=== PATIENT | male | born 1980 | race Caucasian/White ===

== ENCOUNTER 2021-07-03 13:18 | Emergency (ER) | payer SELFPAY ==
[2021-07-03 14:04] LABS: ANION GAP 15.6 mEq/L (7-13); CHLORIDE,CL 102 mmol/L (98-107); SODIUM,NA 140 mmol/L (136-145)
--- NOTE | 2021-07-03 15:02 | CR ---
PROCEDURE INFORMATION: Exam: XR Chest Exam date and time: 07/03/2021 1:31 PM Age: 40 years old Clinical indication: Pain; Chest pressure; Additional info: Chest pain TECHNIQUE: Imaging protocol: XR of the chest. Views: 1 view. Total images: 1 COMPARISON: No relevant prior studies available. FINDINGS: Lungs: Unremarkable. No consolidation. Pleural spaces: Unremarkable. No pleural effusion. No pneumothorax. Heart/Mediastinum: Unremarkable. No cardiomegaly. Bones/joints: Unremarkable. IMPRESSION: No acute findings.
[2021-07-03] MEDS ORDERED: Acetaminophen 325 MG Tab PO ONE (15:03)
[2021-07-03] MEDS ORDERED: Famotidine 20 MG/2 ML SDV IVPUSH ONE (15:03)
--- NOTE | 2021-07-03 16:35 | EDM.PDOC ---
ED HPI GENERAL MEDICAL PROBLEM - General Chief Complaint: Chest Pain Stated Complaint: [id number] FEELS LIKE HAVING HEART ATTACK Time Seen by Provider: 07/03/21 13:35 Source of Information: Reports: Patient History Limitations: Reports: No Limitations - History of Present Illness INITIAL COMMENTS - FREE TEXT/NARRATIVE: ED intermittent chest pain, Present since this am. No fever or chill, no cough. No nausea or vomiting, Describes mid to low anterior, sharp pressure type, feel better if lying on side. Chest Pain Score (Numeric/FACES): 5 - Related Data Allergies Allergy/AdvReac Type Severity Reaction Status Date / Time No Known Allergies Allergy Verified 07/03/21 13:40 Past Medical History - Past Health History Medical/Surgical History: Denies Medical/Surgical History Cardiovascular History: Reports: Hypertension Other Cardiovascular History: States BP has always been high. Not on medications - Infectious Disease History Infectious Disease History: Reports: None - Past Surgical History Cardiovascular Surgical History: Reports: None Social & Family History - Tobacco Use Tobacco Use Status *Q: Current Every Day Tobacco User Years of Tobacco use: 20 Packs/Tins Daily: 1 - Caffeine Use Caffeine Use: Reports: Coffee - Recreational Drug Use Recreational Drug Use: No ED ROS GENERAL - Review of Systems Review Of Systems: Comprehensive ROS is negative, except as noted in HPI. ED EXAM, GENERAL - Physical Exam Exam: See Below Exam Limited By: No Limitations General Appearance: Alert, No Apparent Distress, Anxious Eye Exam: Bilateral Eye: EOMI, Other (dark chickaloon below eyes) Ears: Normal External Exam, Hearing Grossly Normal Ear Exam: Bilateral Ear: TM normal Nose: Normal Inspection Throat/Mouth: Normal Inspection, Normal Voice, No Airway Compromise Head: Atraumatic, Normocephalic Respiratory/Chest: No Respiratory Distress, Lungs Clear, Normal Breath Sounds Cardiovascular: Normal Peripheral Pulses, No Murmur GI/Abdominal: Normal Bowel Sounds Extremities: Normal Inspection, Normal Range of Motion, Non-Tender Neurological: Alert, Oriented, Normal Cognition Psychiatric: Anxious, Flat Affect Skin Exam: Warm, Dry, Intact, Normal Color #1 Interpretation EKG Date: 07/03/21 Time: 14:38 Rhythm: NSR Rate (Beats/Min): 101 [place]: Normal P-Wave: Present QRS: Normal ST-T: Normal Comparison: NA - No Prior EKG Course - Vital Signs Last Recorded V/S: Last Vital Signs Temp 97.6 F 07/03/21 13:33 Pulse 97 07/03/21 13:33 Resp 20 07/03/21 13:33 BP 175/107 H 07/03/21 13:33 Pulse Ox 98 07/03/21 13:33 - Orders/Labs/Meds Labs: Laboratory Tests 07/03/21 07/03/21 07/03/21 Range/Units 13:32 13:32 15:30 WBC 4.7 L (5.0-10.0) 10^3/uL RBC 4.77 (4.6-6.2) 10^6/uL Hgb 16.5 (14.0-18.0) g/dL Hct 48.2 (40.0-54.0) % MCV 101.0 H (80-100) fL MCH 34.6 H (27.0-34.0) pg MCHC 34.2 (33.0-35.0) g/dL Plt Count 214 (150-450) 10^3/uL Neut % (Auto) 48.5 (42.2-75.2) % Lymph % (Auto) 35.8 (20.5-50.1) % Andrews % (Auto) 11.7 H (2-8) % Eos % (Auto) 2.3 (1.0-3.0) % Baso % (Auto) 1.7 H (0.0-1.0) % Sodium 140 (136-145) mmol/L Potassium 3.6 (3.5-5.1) mmol/L Chloride 102 (98-107) mmol/L Carbon Dioxide 26 (21-32) mmol/L Anion Gap 15.6 H (7-13) mEq/L BUN 7 (7-18) mg/dL Creatinine 1.27 (0.70-1.30) mg/dL Est Cr Clr Drug Dosing 84.86 mL/min Estimated GFR (MDRD) > 60 BUN/Creatinine Ratio 5.5 (No establ ref range) Glucose 143 H (70-99) mg/dL Calcium 9.0 (8.5-10.1) mg/dL Total Bilirubin 1.4 H (0.2-1.0) mg/dL AST 161 H (15-37) U/L ALT 109 H (16-63) U/L Alkaline Phosphatase 79 (46-116) U/L Troponin I High Sens < 4 < 4 (<=76) pg/mL Total Protein 8.3 H (6.4-8.2) g/dL Albumin 4.4 (3.4-5.0) g/dL Globulin 3.9 Albumin/Globulin Ratio 1.1 Amylase 37 (25-115) U/L Lipase 212 (73-393) U/L Ethyl Alcohol 181 (0) mg/dL Meds: Medications Discontinued Medications Generic Name Dose Route Start Last Admin Trade Name Montez PRN Reason Stop Dose Admin Acetaminophen 650 mg 07/03/21 15:03 07/03/21 15:10 Acetaminophen 325 Mg Tab PO 07/03/21 15:04 650 mg NOW ONE Administration Famotidine 20 mg 07/03/21 15:03 07/03/21 15:12 Famotidine 20 Mg/2 Ml Sdv IVPUSH 07/03/21 15:04 20 mg ONETIME ONE Administration Departure - Departure Time of Disposition: 17:35 Disposition: Home, Self-Care 01 Condition: Good Clinical Impression: Epigastric abdominal pain, Non-cardiac chest pain, Anxiety Alcohol intoxication Qualifiers: Complication of substance-induced condition: uncomplicated Qualified Code(s): F10.920 - Alcohol use, unspecified with intoxication, uncomplicated Instructions: Nonspecific Chest Pain, Adult, Alcohol Intoxication, [id number] Forms: ED Department Discharge Additional Instructions: decrease alcohol ingestion increase fluids tylenol or ibuprofen alternating every 4 hours as needed for discomfort deep breathing exercises every 32 hours while awake bland low fat diet, limit spicy acid foods, and caffeine clinic follow up this week Sepsis Event Note (ED) - Evaluation Sepsis Screening Result: No Definite Risk
== END 2021-07-03 17:23 | disposition home or self-care (01) ==
LOC: DL.ED 13:18
DX: R07.89 Other chest pain (principal); R10.13 Epigastric pain; F41.9 Anxiety disorder, unspecified; F10.129 Alcohol abuse with intoxication, unspecified; I10 Essential (primary) hypertension; Z72.0 Tobacco use; Y90.6 Blood alcohol level of 120-199 mg/100 ml
CPT/HCPCS: 36415; 71045; 80053; 80307; 82150; 83690; 84484; 85025; 93005; 96374; 99285-25; A9270-GY; J3490